=== PATIENT | female | born 1980 | race African-American/Black ===

== ENCOUNTER 2021-04-26 15:44 | Emergency (ER) | payer BC ==
[~2021-04-26] VITALS: Ht 160 cm; Wt 95.0 kg
[2021-04-26 16:29] LABS: BILIRUBIN,URINE NEGATIVE (NEG); CLARITY,URINE CLEAR; COLOR,URINE YELLOW; NITRITE,URINE NEGATIVE (NEG); PROTEIN,URINE NEGATIVE (NEG-TRACE); UROBILINOGEN,URINE 0.2 mg/dL (0.2 mg/dL)
[2021-04-26 16:43] LABS: BACTERIA,URINE MODERATE /HPF (0-FEW); RBC,URINE 0 /HPF (0-2)
--- NOTE | 2021-04-26 18:17 | PHYS DOC ---
Past Medical History Past Medical History: Diabetes-Type II, Hypertension (SILVIA AMEZCUA DO) Additional Past Surgical Histo: Post- D&C (SILVIA AMEZCUA DO) Smoking Status: Current Every Day Smoker Alcohol Use: Occasionally Drug Use: None (SILVIA AMEZCUA DO) General Adult EDM: Chief Complaint: ABDOMINAL PAIN HPI: HPI: Patient is a 40 year old female who presents with lower bilateral pelvic pain with onset of last Wednesday that started on its own. Reports right worse than left. No previous episodes. She reports nausea and vomiting, but denies diarrhea or constipation. She denies burning on urination. Nothing improves. Nothing worsens. Pain radiates to back. She reports no menstrual cycles in last 20 years with PCP diagnosis of early perimenopause. She also reports possibility of STI and white vaginal discharge. Denies fever/chills. Denies trauma. (SILVIA AMEZCUA DO) Review of Systems: Review of Systems: Constitutional: Denies fever or chills Eyes: Denies redness or eye pain HENT: Denies nasal congestion or sore throat Respiratory: Denies cough or shortness of breath Cardiovascular: Denies chest pain or palpitations GI: Reports low abdominal/pelvic pain, nausea, and vomiting; denies diarrhea /METAL SOLDERER: Reports dysuria and vaginal discharge; denies hematuria Integument: Denies rash or skin lesions Neurologic: Denies headache, focal weakness or sensory changes Complete systems were reviewed and found to be within normal limits, except as documented in this note. (SILVIA AMEZCUA DO) Heart Score: C/O Chest Pain: N/A (SILVIA AMEZCUA DO) Current Medications: Current Medications Medications (Trade) Dose Ordered Sig/Michael Start Time Stop Time Status Last Admin Dose Admin Famotidine (Pepcid Vial) 20 mg 1X ONCE 04/26/21 17:30 04/26/21 17:31 UNV Ketorolac Tromethamine (Toradol 15mg Vial) 15 mg 1X ONCE 04/26/21 17:30 04/26/21 17:31 UNV Ondansetron HCl (Zofran) 4 mg 1X ONCE 04/26/21 17:30 04/26/21 17:31 UNV Sodium Chloride 1,000 ml @ 1,000 mls/hr 1X ONCE 04/26/21 17:45 04/26/21 18:44 UNV (SILVIA AMEZCUA DO) Physical Exam: PE: Constitutional: Well developed, well nourished, no acute distress, non-toxic appearance HENT: Normocephalic, atraumatic Eyes: conjunctiva normal, no discharge Neck: Normal range of motion, no tenderness, supple Lungs & Thorax: No respiratory distress, equal chest rise and fall, Clear to auscultation, no wheezing Abdomen: Soft, no tenderness, no guarding/rebound tenderness/distention Pelvis: Kennel Worker: Rachel BRYANT, external genitalia normal, no discharge noted in vaginal vault, no foreign bodies, tender right adnexa, no palpable masses Skin: Warm, dry, no erythema, no rash Back: No tenderness, no CVA tenderness Extremities: No tenderness, ROM intact, no edema Neurologic: Alert and oriented X 3, normal motor function, normal sensory function, no focal deficits noted Psychologic: Affect normal, judgment normal (SILVIA AMEZCUA DO) Current Patient Data: Labs: Laboratory Tests Test 04/26/21 16:00 04/26/21 16:19 Urine Collection Type Unknown Urine Color Yellow Urine Clarity Clear Urine pH 6.0 (<5.0-8.0) Urine Specific [place] 1.015 (1.000-1.030) Urine Protein Negative mg/dL (NEG-TRACE) Urine Glucose (UA) Negative mg/dL (NEG) Urine Ketones (Stick) Negative mg/dL (NEG) Urine Blood Negative (NEG) Urine Nitrite Negative (NEG) Urine Bilirubin Negative (NEG) Urine Urobilinogen Dipstick 0.2 mg/dL (0.2 mg/dL) Urine Leukocyte Esterase Trace (NEG) Urine RBC 0 /HPF (0-2) Urine WBC 1-4 /HPF (0-4) Urine Squamous Epithelial Cells Many /LPF Urine Bacteria Moderate /HPF (0-FEW) Urine Mucus Slight /LPF POC Urine HCG, Qualitative Hcg negative (Negative) (SILVIA AMEZCUA DO) EKG: EKG: [] (SILVIA AMEZCUA DO) Radiology/Procedures: Radiology/Procedures: [] (SILVIA AMEZCUA DO) Radiology/Procedures: IMAGING REPORT Signed PATIENT: MEGHAN MCQUEEN ACCOUNT: [id number] : 1980 LOCATION: ER AGE: 40 SEX: F EXAM STATUS: REG ER ORD. PHYSICIAN: SILVIA AMEZCUA DO REASON: right adnexal tenderness eval for torsion PROCEDURE: PELVIS W/TV EXAMINATION: US PELVIS W/TV, 04/26/2021 6:58 PM CLINICAL INDICATION: Right adnexal tenderness, evaluate for torsion TECHNIQUE: Grayscale, color and spectral Doppler ultrasound images of the pelvis via transabdominal and transvaginal approach. COMPARISON: None. FINDINGS: The uterus and ovaries are not visualized. No free fluid or mass visualized. The bladder wall appears thickened and the bladder may contain some debris. IMPRESSION: 1. Nonvisualized uterus and ovaries. No free fluid or pelvic mass visualized. 2. Mild bladder wall thickening. Possible debris in the bladder. Electronically signed by: Mitali Fernandez MD (04/26/2021 9:57 PM) [id number] DICTATED and SIGNED BY: MITALI FERNANDEZ MD DATE: 04/26/21 [id number] (IONA BURTON DO) Course & Med Decision Making: Course & Med Decision Making Pertinent Lab and Radiological studies reviewed. (See chart for details) Pt presents with lower bilateral pelvic pain that radiates towards back since Wednesday. Pt reports nausea and vomiting, denies diarrhea and constipation. Reports dysuria. Pt reports no menstrual cycles for last 20 years and reports her PCP told her she is in early perimenopause. She reports white vaginal discharge and possibility of STI. Symptomatic treatment provided. Performed pelvic exam and obtained swabs for STI testing. Exam revealed right adnexal pain. Chlamydia/Gonorrhea cultures pending. Empiric Rocephin IM provided. Wet mount pending. Labs ordered and pending. UA without signs of infection. Upreg negative. 1800 sign out given to Dr Burton for further evaluation and final disposition. Discussed current findings and plan with patient, who acknowledges understanding and agreement. (SILVIA AMEZCUA DO) Course & Med Decision Making Concern for bilateral pelvic pain, TVUS did not visualized ovaries or uterus. Pt c/o pruritic vaginal discharge and reports sti are possible. Educated she be treated empirically for chlamydia and gonorrhea, and also for bacterial vaginosis. Patient young with no dysuria, hematuria, flank pain, fever, nausea or vomiting. Patient was educated regarding ultrasound findings and if she should develop any worsening symptoms including fever or pain to return immediately. Pt calm, in no distress, no severe pain (torsion highly unlikely) and agrees with discharge planning. Will discharge home with strict ED return precautions. Encouraged urgent outpatient follow-up with PMD for urgent follow- up and PATIENT REGISTRATION CLERK for definitive management. Life-threatening processes were considered but are low suspicion at this time, given history, physical exam and ED workup. Pt was educated on all prescription medications and adverse effects. All patient's questions were answered and pt was stable at time of discharge. Life/limb-threatening differential includes but is not limited to, ectopic , septic , sepsis/infection (endometritis, sti/pid, cystitis, pyelonephritis, Anette's gangrene or necrotizing fasciitis, abscess), ovarian torsion, ruptured hemorrhagic ovarian cyst, endometriosis, ureterolithiasis, thrombophlebitis, hemorrhage/DIC, organ prolapse, abdominal aortic aneurysm, mesenteric ischemia, neoplasm, bowel obstruction or surgical abdomen. I have spoken with the patient and/or caregivers. I explained the patient's condition, diagnoses and treatment plan based on the information available to me at this time. I have answered the patient and/or caregiver's questions and addressed any concerns. The patient and/or caregivers have a good understanding of patient's diagnosis, condition and treatment plan as can be expected at this point. Vital signs have been stable. Patient's condition is stable and appropriate for discharge from the emergency department. Patient will pursue further outpatient evaluation with primary care physician or other designated or consulting physician as outlined in the discharge in structions. The patient and/or caregivers are agreeable to this plan of care and follow-up instructions have been explained in detail. The patient and/or caregivers have received these instructions in written form and have expressed an understanding of the discharge instructions. The patient and/or caregivers are aware that any significant change of condition or worsening of symptoms should prompt immediate return to this or the closest emergency department or call to 911. (IONA BURTON DO) Liudmila Disclaimer: Liudmila Disclaimer: This electronic medical record was generated, in whole or in part, using a voice recognition dictation system. (SILVIA AMEZCUA DO) Departure Departure Impression: Primary Impression: Pelvic pain Additional Impression: Bacterial vaginosis Disposition: HOME / SELF CARE / HOMELESS Condition: STABLE Referrals: NON,STAFF (PCP) Follow-up with your primary care physician in 24 to 48 hours OR FOLLOW UP WITH FAMILY MEDICINE: [address], [address] [place] [address] Patient Instructions: Bacterial Vaginosis, Sexually Transmitted Disease Additional Instructions: FOLLOW UP WITH PATIENT REGISTRATION CLERK: FOR DEFINITIVE MANAGEMENT [facility] [address], [address] [place] [address] EMERGENCY DEPARTMENT GENERAL DISCHARGE INSTRUCTIONS Thank you for coming to [facility] Emergency Department (ED) today and trusting us with you care. We trust that you had a positive experience in our E mergency Department. If you wish to speak to the department management, you may call the Director at [phone]. YOUR FOLLOW UP INSTRUCTIONS ARE FOLLOWS: 1. Do you have a private Doctor? If you do not have a private doctor, please ask for a resource list of physicians or clinics that may be able to assist you with follow up care. 2. The Emergency Physicain has interpreted your x-rays. The X-Ray specialist will also review them. If there is a change in the findings, you will be notified in 48 hours when at all possible. 3. A lab test or culture has been done, your results will be reviewed and you will be notified if you need a change in treatment. ADDITIONAL INSTRUCTIONS AND INFORMATION: 1. Your care today has been supervised by a physician who is specially trained in emergency care. Many problems require more than one evaluation for a complete diagnosis a nd treatment. We recommend that you schedule your follow up appointment as recommended to ensure complete treatment of you illness or injury. If you are unable to obtain follow up care and continue to have a problem, or if your condition worsens, we recommend that you return to the ED. 2. We are not able to safely determine your condition over the phone nor are we able to give sound medical advice over the phone. For these safety reasons, if you call for medical advice we will ask you to come to the ED for further evaluation. 3. If you have any questions regarding these discharge instructions please call the ED at [phone]. SAFETY INFORMATION: In the interest of safety, wellness, and injury prevention; we encourage you to wear your sealbelt, if you smoke; quite smoking, and we encourage family to use a protective helmet for bicycling and other sporting events that present an increased risk for head injury. IF YOUR SYMPTOMS WORSEN OR NEW SYMPTOMS DEVELOP, OR YOU HAVE CONCERNS ABOUT YOUR CONDITION; OR IF YOUR CONDITION WORSENS WHILE YOU ARE WAITING FOR YOUR FOLLOW UP APPOINTMENT; EITHER CONTACT YOUR PRIMARY CARE DOCTOR, THE PHYSICIAN WHOSE NAME AND NUMBER YOU WERE GIVEN, OR RETURN TO THE ED IMMEDIATELY. Scripts Metronidazole (FLAGYL) 500 Mg Tablet 1 TAB PO BID for 7 Days, #14 TAB Prov: IONA BURTON DO 04/26/21 Doxycycline Hyclate (DOXYCYCLINE HYCLATE) 100 Mg Capsule 1 CAP PO BID for 7 Days, #14 CAP Prov: IONA BURTON DO 04/26/21 SILVIA AMEZCUA DO Apr 26, 2021 18:17 IONA BURTON DO Apr 26, 2021 22:12
[2021-04-26] MEDS ORDERED: cefTRIAXone IM 500 MG VIAL. IM ONE (18:30)
[2021-04-26] MEDS ORDERED: ONDANSETRON PF 4 MG/2 ML VIAL. IVP ONE (18:30)
[2021-04-26] MEDS ORDERED: FAMOTIDINE 20 MG/2 ML VIAL IVP ONE (18:30)
[2021-04-26] MEDS ORDERED: KETOROLAC 15 MG/ML VIAL. IVP ONE (18:30)
[2021-04-26] MEDS ORDERED: IV NORMAL SALINE 1000ML BAG 1,000 ML IV ONE (18:30)
[2021-04-26 18:49] LABS: BASO # 0.1 x10^3/uL (0.0-0.2); BASO % 1 % (0-3); EOS # 0.4 x10^3/uL (0.0-0.7); EOS % 4 % (0-3); HEMATOCRIT 41.1 % (36.0-47.0); HEMOGLOBIN 13.8 g/dL (12.0-15.5); LYMPH % 46 % (24-48); MEAN CORPUSCULAR HEMOGLOBIN 28 pg (25-35); MEAN CORPUSCULAR HGB CONC 34 g/dL (31-37); MEAN CORPUSCULAR VOLUME 84 fL (79-100); MONO # 0.6 x10^3/uL (0.0-1.1); MONO % 7 % (0-9); NEUT # 3.5 x10^3/uL (1.8-7.7); NEUT % 41 % (31-73); PLATELET COUNT 217 x10^3/uL (140-400); RED BLOOD COUNT 4.88 x10^6/uL (3.50-5.40); RED CELL DISTRIBUTION WIDTH 13.8 % (11.5-14.5); WHITE BLOOD COUNT 8.6 x10^3/uL (4.0-11.0)
[2021-04-26 21:08] LABS: CALCIUM 8.8 mg/dL (8.5-10.1); CREATININE 0.9 mg/dL (0.6-1.0); GFR 83.5; POTASSIUM 3.6 mmol/L (3.5-5.1)
[2021-04-26 21:12] VITALS: BP 146/95
[2021-04-26 21:14] LABS: ALBUMIN 3.4 g/dL (3.4-5.0); ALBUMIN/GLOBULIN RATIO 0.9 (1.0-1.7); TOTAL BILIRUBIN 0.3 mg/dL (0.2-1.0)
--- NOTE | 2021-04-26 21:59 | RAD ---
EXAMINATION: US PELVIS W/TV, 04/26/2021 6:58 PM CLINICAL INDICATION: Right adnexal tenderness, evaluate for torsion TECHNIQUE: Grayscale, color and spectral Doppler ultrasound images of the pelvis via transabdominal a nd transvaginal approach. COMPARISON: None. FINDINGS: The uterus and ovaries are not visualized. No free fluid or mass visualized. The bladder wall appears thickened and the bladder may contain some debris. IMPRESSION: 1. Nonvisualized uterus and ovaries. No free fluid or pelvic mass visualized. 2. Mild bladder wall thickening. Possible debris in the bladder. Electronically signed by: Alice Fernandez MD (04/26/2021 9:57 PM) [id number]
[2021-04-26] MEDS ORDERED: METR500T PO (22:12)
[2021-04-26] MEDS ORDERED: DOXY100C2 PO (22:12)
[2021-04-28 15:19] LABS: GC PROBE Negative (Negative)
== END 2021-04-26 22:47 | disposition home or self-care (01) ==
LOC: ER 15:44
DX: N76.0 Acute vaginitis (principal); B96.89 Other specified bacterial agents as the cause of diseases classified elsewhere; R10.2 Pelvic and perineal pain; E11.9 Type 2 diabetes mellitus without complications; I10 Essential (primary) hypertension; F17.200 Nicotine dependence, unspecified, uncomplicated
CPT/HCPCS: 36415; 76830; 76856; 80053; 81001; 81025; 83690; 85025; 87086; 87491; 87591; 96361; 96372; 96374; 96375; 99284; J0696; J1885; J2405; J3490; J7030; Q0111

== ENCOUNTER 2021-10-07 08:38 | Emergency (ER) | payer BC ==
[~2021-10-07] VITALS: Ht 160 cm; Wt 95.4 kg
[~2021-10-07 08:38] MED LIST: DOXY100C3 PO; METR500T PO
[2021-10-07] MEDS ORDERED: ONDANSETRON PF 4 MG/2 ML VIAL. IVP ONE (11:15)
[2021-10-07] MEDS ORDERED: KETOROLAC 30 MG/ML VIAL. IVP ONE (11:15)
[2021-10-07] MEDS ORDERED: IV NORMAL SALINE 1000ML BAG 1,000 ML IV ONE (11:15)
[2021-10-07] MEDS ORDERED: MECLIZINE HCL 12.5 MG TABLET. PO ONE (11:15)
--- NOTE | 2021-10-07 11:22 | PHYS DOC ---
Past Medical History Past Medical History: Diabetes-Type II, Hypertension Additional Past Medical Histor: SICKLE CELL TRAIT Past Surgical History: Other Additional Past Surgical Histo: Post- D&C Smoking Status: Current Every Day Smoker Alcohol Use: Occasionally Drug Use: None General Adult EDM: Chief Complaint: HEADACHE HPI: HPI: Patient is a 41 year old female who presents with headache, body aches, dizziness, cough. Patient states that symptoms started on Wednesday. Patient states "I feel like I am spinning". Reports dizziness started on Wednesday and cough began yesterday. Patient denies shortness of breath or chest pain. Denies fevers. Patient reports taking ibuprofen at home with no relief patient states that she has not taken any of her medications in the last 2 days. Patient has history of migraines, diabetes, hypertension, chronic back pain and asthma. Patient has been fully vaccinated for COVID-19 and also influenza. Review of Systems: Review of Systems: ROS At least 10 ROS systems have been reviewed and are negative except as documented in the HPI. General: Negative except as outlined in HPI above. Skin: Negative except as outlined in HPI above. HEENT: Negative except as outlined in HPI above. Neck: Negative except as outlined in HPI above. Respiratory: Negative except as outlined in HPI above.. Cardiovascular: Negative except as outlined in HPI above. Abdomen: Negative except as outlined in HPI above. : Negative except as outlined in HPI above. Back/MSK: Negative except as outlined in HPI above. Neuro: Negative except as outlined in HPI above. Psych: Negative except as outlined in HPI above. Heart Score: C/O Chest Pain: No Risk Factors: Risk Factors: DM, Current or recent (<one month) smoker, HTN, HLP, family history of CAD, obesity. Risk Scores: Score 0 - 3: 2.5% MACE over next 6 weeks - Discharge Home Score 4 - 6: 20.3% MACE over next 6 weeks - Admit for Clinical Observation Score 7 - 10: 72.7% MACE over next 6 weeks - Early Invasive Strategies Allergies: Allergies: Allergies Coded Allergies Type Severity Reaction Last Updated Verified caffeine Allergy Unknown 04/26/21 Yes Physical Exam: PE: Constitutional: Well developed, well nourished, no acute distress, non-toxic appearance. [] HENT: Normocephalic, atraumatic, bilateral external ears normal, oropharynx moist, no oral exudates, nose normal. [] Eyes: PERRLA, EOMI, conjunctiva normal, no discharge. [] Neck: Normal range of motion, no tenderness, supple, no stridor. [] Cardiovascular:Heart rate regular rhythm, no murmur [] Lungs & Thorax: Bilateral breath sounds clear to auscultation [] Abdomen: Bowel sounds normal, soft, no tenderness, no masses, no pulsatile masses. [] Skin: Warm, dry, no erythema, no rash. [] Back: No tenderness, no CVA tenderness, chronic back tenderness Extremities: No tenderness, no cyanosis, no clubbing, ROM intact, no edema. [] Neurologic: Alert and oriented X 3, normal motor function, normal sensory function, no focal deficits noted. Dizziness. Psychologic: Affect normal, judgement normal, mood normal. [] Current Patient Data: Labs: Laboratory Tests Test 10/07/21 11:00 POC Urine HCG, Qualitative Hcg negative (Negative) EKG: EKG: Sinus rhythm. Heart rate [address] elevation. Read by Dr. Lucas. Radiology/Procedures: Radiology/Procedures: []INDICATION: Reason: dizziness / Spl. Instructions: / History: COMPARISON: None. TECHNIQUE: Axial CT images obtained through the head without intravenous contrast. One or more of the following individualized dose reduction techniques were utilized for this examination: 1. Automated exposure control; 2. Adjustment of the mA and/or kV according to patient size; 3. Use of iterative reconstruction technique. FINDINGS: No intracranial hemorrhage. No significant midline shift. Ventricles and sulci are unremarkable. No acute osseous abnormality. Mild scattered foci of low density of white matter. Bowing of nasal septum to left. IMPRESSION: * No acute intracranial hemorrhage. Electronically signed by: Hebert Tilley MD (10/07/2021 12:28 PM) [id number] Course & Med Decision Making: Course & Med Decision Making Pertinent Labs and Imaging studies reviewed. (See chart for details) [] 41-year-old female presents with headache, dizziness, cough, body aches that started Wednesday. Work-up in ER consisted of labs, EKG, urinalysis, chest x-ray, CT head. Patient denies taking any of her medications in the last 2 days due to nausea. Pain treated in the ER. Dizziness treated with meclizine. Patient given NS bolus. All labs unremarkable. CT head unremarkable. UA is positive for leuks. Patient sent home with antibiotic to treat UTI. Patient reports symptoms have improved after medication was administered. Denies dizziness or pain at this time. Discussed all results with patient. Advised patient I would send medication for urinary tract infection, meclizine, Zofran to pharmacy. Advised patient to follow-up with her PCP if symptoms do not improve in the next 2 to 3 days. Patient may need further management and referral for ENT. Increase fluid intake . Discussed importance of taking her daily medications.Patient verbalizes understanding of discharge instructions. Dragon Disclaimer: [employer] Disclaimer: This electronic medical record was generated, in whole or in part, using a voice recognition dictation system. Departure Departure Impression: Primary Impression: Dizziness Additional Impression: Urinary tract infection Qualified Codes: N30.00 - Acute cystitis without hematuria Disposition: HOME / SELF CARE / HOMELESS Condition: STABLE Referrals: NON,STAFF (PCP) Patient Instructions: Urinary Tract Infection, Jmnq-am-Kgof, Vertigo, Jewd-uo-Raig Additional Instructions: You were seen in the emergency room for dizziness. All of your labs were unremarkable. CT of your head was unremarkable. Your urine was positive for a urinary tract infection. After you were given medications in the ER your symptoms improved. Sending you home with prescriptions for dizziness, nausea, antibiotic to treat UTI. Please follow-up with your PCP in the next couple of days if symptoms do not improve you may need a referral for ENT for further management. Return to emergency room with worsening symptoms or concerns EMERGENCY DEPARTMENT GENERAL DISCHARGE INSTRUCTIONS Thank you for coming to [facility] Emergency Department (ED) today and trusting us with you care. We trust that you had a positive experience in our Emergency Department. If you wish to speak to the department management, you may call the Director at [phone]. YOUR FOLLOW UP INSTRUCTIONS ARE FOLLOWS: 1. Do you have a private Doctor? If you do not have a private doctor, please ask for a resource list of physicians or clinics that may be able to assist you with follow up care. 2. The Emergency Physicain has interpreted your x-rays. The X-Ray specialist will also review them. If there is a change in the findings, you will be notified in 48 hours when at all possible. 3. A lab test or culture has been done, your results will be reviewed and you will be notified if you need a change in treatment. ADDITIONAL INSTRUCTIONS AND INFORMATION: 1. Your care today has been supervised by a physician who is specially trained in emergency care. Many problems require more than one evaluation for a complete diagnosis and treatment. We recommend that you schedule your follow up appointment as recommended to ensure complete treatment of you illness or injury. If you are unable to obtain follow up care and continue to have a problem, or if your condition worsens, we recommend that you return to the ED. 2. We are not able to safely determine your condition over the phone nor are we able to give sound medical advice over the phone. For these safety reasons, if you call for medical advice we will ask you to come to the ED for further evaluation. 3. If you have any questions regarding these discharge instructions please call the ED at [phone]. SAFETY INFORMATION: In the interest of safety, wellness, and injury prevention; we encourage you to wear your sealbelt, if you smoke; quite smoking, and we encourage family to use a protec tive helmet for bicycling and other sporting events that present an increased risk for head injury. IF YOUR SYMPTOMS WORSEN OR NEW SYMPTOMS DEVELOP, OR YOU HAVE CONCERNS ABOUT YOUR CONDITION; OR IF YOUR CONDITION WORSENS WHILE YOU ARE WAITING FOR YOUR FOLLOW UP APPOINTMENT; EITHER CONTACT YOUR PRIMARY CARE DOCTOR, THE PHYSICIAN WHOSE NAME AND NUMBER YOU WERE GIVEN, OR RETURN TO THE ED IMMEDIATELY. Scripts Meclizine Hcl (MECLIZINE HCL) 25 Mg Tablet 1 TAB PO PRN TID for dizziness for 7 Days, #30 TAB Prov: GELA SMITH APRN 10/07/21 Cephalexin (KEFLEX) 500 Mg Capsule 1 CAP PO BID for uti for 7 Days, #14 CAP Prov: GELA SMITH APRN 10/07/21 Ondansetron Hcl (ZOFRAN) 4 Mg Tablet 1 TAB PO Q6HRS PRN for NAUSEA/VOMITING for 3 Days, #12 TAB 0 Refills Prov: GELA SMITH APRN 10/07/21 GELA SMITH APRN Oct 07, 2021 11:22
[2021-10-07 11:34] LABS: BILIRUBIN,URINE NEGATIVE (NEG); CLARITY,URINE CLEAR; COLOR,URINE YELLOW; NITRITE,URINE NEGATIVE (NEG); PROTEIN,URINE NEGATIVE (NEG-TRACE); UROBILINOGEN,URINE 0.2 mg/dL (0.2 mg/dL)
--- NOTE | 2021-10-07 11:40 | EKG ---
[facility] [address] [place] [address] Test Date: 2021-10-07 Test Time: 11:38:04 Pat Name: MEGHAN MCQUEEN Department: Room: Gender: F Juvenile Justice Specialist: : 1980 Requested By: GELA SMITH Order Number: [id number] Reading MD: Rd [address] Measurements Intervals [place] Rate: 64 P: [place]: QRS: 20 QRSD: 74 T: 26 QT: 430 QTc: 448 Interpretive Statements SINUS RHYTHM Electronically Signed On 10-08-2021 7:56:[address]
[2021-10-07 11:46] LABS: BACTERIA,URINE MODERATE /HPF (0-FEW); RBC,URINE 0 /HPF (0-2)
[2021-10-07 12:05] LABS: BASO # 0.1 x10^3/uL (0.0-0.2); BASO % 1 % (0-3); EOS # 0.2 x10^3/uL (0.0-0.7); EOS % 3 % (0-3); HEMOGLOBIN 13.6 g/dL (12.0-15.5); LYMPH # 2.8 x10^3/uL (1.0-4.8); LYMPH % 43 % (24-48); MEAN CORPUSCULAR HEMOGLOBIN 28 pg (25-35); MEAN CORPUSCULAR HGB CONC 33 g/dL (31-37); MEAN CORPUSCULAR VOLUME 85 fL (79-100); MONO # 0.6 x10^3/uL (0.0-1.1); MONO % 10 % (0-9); NEUT # 2.8 x10^3/uL (1.8-7.7); NEUT % 43 % (31-73); PLATELET COUNT 235 x10^3/uL (140-400); RED BLOOD COUNT 4.83 x10^6/uL (3.50-5.40); RED CELL DISTRIBUTION WIDTH 14.3 % (11.5-14.5); WHITE BLOOD COUNT 6.4 x10^3/uL (4.0-11.0)
--- NOTE | 2021-10-07 12:31 | RAD ---
INDICATION: Reason: dizziness / Spl. Instructions: / History: COMPARISON: None. TECHNIQUE: Axial CT images obtained through the head without intravenous contrast. One or more of the following individualized dose reduction techniques were utilized for this examinat ion: 1. Automated exposure control; 2. Adjustment of the mA and/or kV according to patient size; 3 . Use of iterative reconstruction technique. FINDINGS: No intracranial hemorrhage. No significant midline shift. Ventricles and sulci are unremarkable. No acute osseous abnormality. Mild scattered foci of low density of white matter. Bowing of nasal septum to left. IMPRESSION: * No acute intracranial hemorrhage. Electronically signed by: Hebert Tilley MD (10/07/2021 12:28 PM) [id number]
[2021-10-07 13:09] LABS: ANION GAP 9 (6-14); BLOOD UREA NITROGEN 10 mg/dL (7-20); BUN/CREATININE RATIO 13 (6-20); CALCIUM 8.8 mg/dL (8.5-10.1); CARBON DIOXIDE 29 mmol/L (21-32); CHLORIDE 106 mmol/L (98-107); CREATININE 0.8 mg/dL (0.6-1.0); GFR 95.2; GLUCOSE 86 mg/dL (70-99); POTASSIUM 4.3 mmol/L (3.5-5.1); SODIUM 144 mmol/L (136-145)
[2021-10-07 13:11] VITALS: BP 159/92
[2021-10-07 13:15] LABS: ALBUMIN 3.6 g/dL (3.4-5.0); ALK PHOS 99 U/L (46-116); AST (SGOT) 14 U/L (15-37); TOTAL BILIRUBIN 0.4 mg/dL (0.2-1.0); TOTAL PROTEIN 7.2 g/dL (6.4-8.2)
[2021-10-07 13:17] LABS: ALT (SGPT) < 6 U/L (14-59)
[2021-10-07] MEDS ORDERED: CEPH500C PO (13:27)
[2021-10-07] MEDS ORDERED: ONDA4TAB7 PO (13:27)
[2021-10-07] MEDS ORDERED: MECL-75 PO (13:27)
--- NOTE | 2021-10-08 19:59 | EKG ---
[facility] [address] [place] [address] Test Date: 2021-10-07 Test Time: 11:40:30 Pat Name: MEGHAN MCQUEEN Department: Room: Gender: F Warehouse Inventory Clerk: : 1980 Requested By: GELA SMITH Order Number: [id number] Reading MD: Rd [address] Measurements Intervals [place] Rate: 60 P: 26 NE: 176 QRS: 15 QRSD: 74 T: 49 QT: 440 QTc: 440 Interpretive Statements SINUS RHYTHM Electronically Signed On 10-12-2021 16:20:47 ENVELOPE SEALER OPERATOR by Rd [address]
--- NOTE | 2021-10-08 19:59 | EKG ---
[facility] [address] [place] [address] Test Date: 2021-10-07 Test Time: 11:39:14 Pat Name: MEGHAN MCQUEEN Department: Room: Gender: F Jack Spinner: : 1980 Requested By: GELA SMITH Order Number: [id number] Reading MD: Rd Santa Measurements Intervals [place] Rate: 61 P: 27 MD: 176 QRS: 13 QRSD: 74 T: 33 QT: 440 QTc: 444 Interpretive Statements SINUS RHYTHM NORMAL ECG RI6.02 Compared to ECG 10/07/2021 11:38:04 No significant changes Electronically Signed On 10-12-2021 16:20:52 [place]AN[place] MIXER OPERATOR [address]
== END 2021-10-07 13:40 | disposition home or self-care (01) ==
LOC: ER 08:38
DX: N30.00 Acute cystitis without hematuria (principal); E11.9 Type 2 diabetes mellitus without complications; I10 Essential (primary) hypertension; F17.200 Nicotine dependence, unspecified, uncomplicated; Z88.8 Allergy status to other drugs, medicaments and biological substances
CPT/HCPCS: 36415; 70450; 80053; 81001; 81025; 82962; 85025; 87086; 93005; 96361; 96374; 96375; 99285; J1885; J2405; J7030; J8597